=== PATIENT | female | born 1965 | race Caucasian/White ===

== ENCOUNTER → 2016-08-10 | Outpatient (CLI) | payer BC ==
--- NOTE | 2016-08-25 15:13 | Diagnostic Imaging Report ---
EXAMINATION: DIG LAURYN BILAT SCREEN W CAD. COMPARISON: Outside mammograms from 05/12/2007, 08/05/2009, 10/05/2010, and 08/12/2014. INDICATION: Screening mammography. TECHNIQUE: Digital screening mammography was obtained with a computer-aided detection (CAD) system. FINDINGS: The breasts are heterogeneously dense which may obscure small masses. In the anterior right upper-outer quadrant near the 9 o'clock position, there is a focal asymmetry that is new since the prior examinations. No abnormality in the left breast to suggest malignancy. IMPRESSION: Focal asymmetry in the anterior right upper-outer quadrant which may represent summation shadow of normal fibroglandular tissue. Recommend further evaluation with spot compression imaging. Ultrasound may be necessary at the time of additional mammogram imaging. ACR BI-RADS Category 0: Incomplete. (Needs additional imaging evaluation). Result letter will be mailed to the patient. Note: At least 10% of breast cancer is not imaged by mammography. Dictated by: Dictated on workstation # [id number]
== END ==
LOC: RAD 14:24
PROVIDERS: ATTEND Family Medicine
DX: Z12.31 Encounter for screening mammogram for malignant neoplasm of breast (principal); N64.89 Other specified disorders of breast

== ENCOUNTER → 2016-08-27 | Outpatient (CLI) | payer BC ==
--- NOTE | 2016-08-27 12:48 | Diagnostic Imaging Report ---
EXAM: Right digital diagnostic mammography, with computer aided detection system (CAD). DATE: August 27, 2016. COMPARISON: August 12, 2014. October 05, 2010. August 05, 2009. May 12, 2007. INDICATION: Right breast asymmetries noted on recent screening mammography. FINDINGS: There are scattered fibroglandular densities. There is resolution of the previously noted right breast asymmetries with spot compression views consistent with areas of normal glandular tissues. IMPRESSION: 1. No mammographic evidence of malignancy in the right breast. Recommend annual screening mammography and clinical breast exam. ACR BI-RADS Category 2: Benign findings. Result letter will be mailed to the patient. Note: At least 10% of breast cancer is not imaged by mammography. Dictated by: Dictated on workstation # [id number]
== END ==
LOC: RAD 10:51
PROVIDERS: ATTEND Family Medicine
DX: R92.8 Other abnormal and inconclusive findings on diagnostic imaging of breast (principal)